=== PATIENT | female | born 1930 | race Caucasian/White ===

== ENCOUNTER 2020-03-05 10:50 | Emergency (ER) | payer MEDICARE, MEDICAID ==
[~2020-03-05 10:50] MED LIST: Iopamidol 370 76% 100 ML VIAL ONE; Sodium Chloride 0.9% 100 ML BAG ONE
[2020-03-05 12:07] LABS: Bilirubin Moderate (Negative); Blood, Urine Trace (Negative); Glucose, Urine (Dipstick) Negative (Negative); Leukocyte Negative (Negative); Nitrite Negative (Negative); Protein, Urine (Dipstick) 100 mg/dL (Neg-Trace); Urobilinogen 0.2 mg/dL (Less than 2)
[2020-03-05 12:15] LABS: Clarity Cloudy (Clear)
[2020-03-05 12:15] LABS: #Basophils 0.1 thou/uL (0.0-0.2); #Lymphocytes 1.5 thou/uL (1.20-3.40); #Monocytes 1.4 thou/uL (0.11-0.59); #Neutrophils 16.6 thou/uL (1.40-6.50); %Basophils 0.4 % (0.0-1.0); %Eosinophils 0.2 % (0.0-10.0); %Lymphocytes 7.4 % (21.0-51.0); Hemoglobin 14.5 g/dL (12.0-16.0); Mean Corpuscular HGB CONC 32.4 g/dL (32.0-36.0); Mean Corpuscular Hemoglobin 27.7 pg (27.0-31.0); Mean Corpuscular Volume 85.7 fL (78.0-98.0); Mean Platelet Volume 8.8 fL (7.4-10.4); Platelet Count 215 thou/uL (130-400); RBC Distribution Width 12.7 % (11.5-14.5); Red Blood Cell (RBC) Count 5.23 mill/uL (4.20-5.40); White Blood Cell (WBC) Count 19.5 thou/uL (4.8-10.8)
[2020-03-05 12:16] LABS: ALT (SGPT) 30 U/L (8-55); AST (SGOT) 27 U/L (5-34); Albumin 3.6 g/dL (3.4-4.8); Alkaline Phosphatase 79 U/L (40-110); Anion Gap 17 mmol/L (10-20); BUN (Urea Nitrogen) 25 mg/dL (9.8-20.1); Bilirubin, Total 0.9 mg/dL (0.2-1.2); Calc. Creatinine Clearance 0 mL/min (70-130); Calcium 8.6 mg/dL (7.8-10.44); Carbon Dioxide 21 mmol/L (23-31); Chloride 107 mmol/L (98-107); Estimated GFR-MDRD 45; Globulin 3.4 g/dL (2.4-3.5); Glucose 94 mg/dL (83-110); Lipase 14 U/L (8-78); Potassium 3.6 mmol/L (3.5-5.1); Sodium 141 mmol/L (136-145)
[2020-03-05 12:19] LABS: Bacteria/HPF 2+ HPF (None Seen); Mucous/LPF 2+ LPF (<2+); RBC/HPF 0-3 HPF (0-3); Squamous Epithelial 0-3 HPF (0-3); WBC/HPF None Seen HPF (0-3)
[2020-03-05 12:32] LABS: CKMB 2.3 ng/mL (0-6.6)
[2020-03-05] MEDS ORDERED: Piperacillin/Tazobactam 4.5 GM VIAL ONE (13:02)
--- NOTE | 2020-03-05 13:19 | CT ---
CT ABDOMEN WITH CONTRAST CT PELVIS WITH CONTRAST: DATE: 03/05/2020 HISTORY: 89-year-old female with right lower quadrant abdominal pain with nausea and vomiting COMPARISON: None TECHNIQUE: IV injection of iodinated contrast media: administered. Oral contrast media:Not administered FINDINGS: Breathing motion artifact at bilateral lung bases. Groundglass nonspecific densities at bases of bila teral lower lobes, right greater than left. Noncalcified 1.8 x 0.8 x 0.8 cm noncalcified pulmonary nodule at right middle lobe laterally abutting the right hemidiaphragm. Tiny right pleural effusion. Very distended gallbladder. Images of upper abdomen severely degraded by patient breathing motion. At the central portion of the pancreatic head, there is a smoothly well-circumscribed, approximately 2.5 x 2.5 x 3.7 cm mass with high attenuation, almost as high as the adjacent confluence between the superior mesenteric vein, main portal vein, and splenic vein, which it broadly abuts, and from wh ich it is inseparable. All of those veins are patent. No obvious large focal hepatic mass lesion. Diffuse periportal edema following the branches of the portal vein in the liver. No biliary ductal di lation. Several small bilateral renal cysts. One lateral exophytic 4.7 cm cyst at mid pole of left kidney. Appearance of hydronephrosis bilaterally may instead represent multiple parapelvic renal cyst s. No hydroureter. Decompressed urinary bladder. No splenomegaly. No pancreatic ductal dilation. No adrenal mass. Atherosclerotic callus patient without aneurysm of abdominal aorta. Multilevel high-gra de degenerative disc disease throughout lumbar spine. No compression fracture. No small bowel dilation. Increased mucosal enhancement of gastric antrum and second and third stages of duodenum. Large number of diverticula throughout sigmoid: And descending colon. No convincing evidence of acute diverticulitis. Appendix not identified. IMPRESSION: 1) appendix not identified 2) A 3.7 cm hyperdense mass expanding the margins of the pancreatic head. 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 3) 18 mm right middle lobe pulmonary nodule. 4.) Suspicious for duodenitis. 5.) Distended gallbladder. 6) lumbar spondylosis
--- NOTE | 2020-03-05 14:13 | RAD ---
CHEST 1 VIEW: INDICATION: History of weakness. COMPARISON: None. FINDINGS: There is cardiomegaly and mild pulmonary vascular congestion with interstitial prominence that may re flect underlying interstitial edema. There are small bilateral pleural effusions. No pneumothorax i s evident. IMPRESSION: Findings suspicious for mild congestive heart failure. Recommend correlation with clinical and radio graphic followup. POS: BH
[2020-03-05] MEDS ORDERED: Aspirin Chewable 81 MG TAB ONE (14:56)
[2020-03-05 15:36] LABS: Troponin I 0.056 ng/mL (< 0.028)
== END 2020-03-05 15:37 | disposition short-term general hospital (02) ==
LOC: MADERS 10:50
DX: A41.9 Sepsis, unspecified organism (principal); I48.92 Unspecified atrial flutter; R79.89 Other specified abnormal findings of blood chemistry; F41.9 Anxiety disorder, unspecified; D64.9 Anemia, unspecified; I10 Essential (primary) hypertension; E78.5 Hyperlipidemia, unspecified; Z79.899 Other long term (current) drug therapy
CPT/HCPCS: 36415; 51701; 71045; 74177; 80053; 81003; 81015; 82553; 83605; 83690; 84484; 85025; 87040; 93005; 94760; 96365; 96367; J2543; J3370; J3490; J7050; Q9967

== ENCOUNTER 2020-03-21 05:42 | Emergency (ER) | payer MEDICARE, MEDICAID ==
[2020-03-21 06:43] LABS: #Basophils 0.1 thou/uL (0.0-0.2); #Eosinphils 0.2 thou/uL (0.0-0.7); #Lymphocytes 1.8 thou/uL (1.20-3.40); #Monocytes 0.6 thou/uL (0.11-0.59); #Neutrophils 7.8 thou/uL (1.40-6.50); %Basophils 0.6 % (0.0-1.0); %Eosinophils 1.6 % (0.0-10.0); %Lymphocytes 17.6 % (21.0-51.0); %Monocytes 5.3 % (0.0-10.0); Hemoglobin 10.8 g/dL (12.0-16.0); Mean Corpuscular HGB CONC 30.9 g/dL (32.0-36.0); Mean Corpuscular Hemoglobin 26.5 pg (27.0-31.0); Mean Corpuscular Volume 85.7 fL (78.0-98.0); Mean Platelet Volume 7.2 fL (7.4-10.4); Platelet Count 257 thou/uL (130-400); RBC Distribution Width 13.2 % (11.5-14.5); Red Blood Cell (RBC) Count 4.06 mill/uL (4.20-5.40); White Blood Cell (WBC) Count 10.4 thou/uL (4.8-10.8)
[2020-03-21 06:44] LABS: INR-International Normal Ratio 1.1; PTT 28.6 sec (22.9-36.1); Prothrombin Time 14.2 sec (12.0-14.7)
[2020-03-21] MEDS ORDERED: Sodium Chloride 0.9% 1,000 ML ONE (06:50)
[2020-03-21] MEDS ORDERED: Ondansetron PF 4 MG/2 ML Vial ONE (06:51)
[2020-03-21 06:53] LABS: Bilirubin Negative (Negative); Blood, Urine Negative (Negative); Clarity Clear (Clear); Glucose, Urine (Dipstick) Negative (Negative); Leukocyte Negative (Negative); Nitrite Negative (Negative); Protein, Urine (Dipstick) Negative (Neg-Trace); Urobilinogen 0.2 mg/dL (Less than 2)
[2020-03-21 06:56] LABS: ALT (SGPT) 15 U/L (8-55); AST (SGOT) 17 U/L (5-34); Albumin 2.9 g/dL (3.4-4.8); Alkaline Phosphatase 44 U/L (40-110); Anion Gap 14 mmol/L (10-20); BUN (Urea Nitrogen) 26 mg/dL (9.8-20.1); Bilirubin, Total 0.4 mg/dL (0.2-1.2); CK (CPK) 23 U/L (29-168); Calc. Creatinine Clearance 0 mL/min (70-130); Calcium 7.8 mg/dL (7.8-10.44); Carbon Dioxide 22 mmol/L (23-31); Chloride 110 mmol/L (98-107); Estimated GFR-MDRD 77; Globulin 2.9 g/dL (2.4-3.5); Glucose 101 mg/dL (83-110); Lipase 21 U/L (8-78); Potassium 4.7 mmol/L (3.5-5.1); Protein, Total 5.8 g/dL (6.0-8.3); Sodium 141 mmol/L (136-145)
[2020-03-21] MEDS ORDERED: Pantoprazole 40 MG VIAL ONE ×2 (07:19→07:50)
--- NOTE | 2020-03-21 07:38 | RAD ---
Exam: Chest one view HISTORY:GI bleed Comparison: 03/05/2012 FINDINGS: Cardiac silhouette: Normal Aorta: Atherosclerosis Pulmonary vessels: Normal Costophrenic angles: Clear LUNGS: No masses or consolidation. Pneumothorax: None Osseous abnormalities: None IMPRESSION: No acute cardiopulmonary process. Atherosclerosis.
[2020-03-21] MEDS ORDERED: Sodium Chloride 0.9% 200 ML ONE (07:50)
== END 2020-03-21 08:20 | disposition short-term general hospital (02) ==
LOC: MADERS 05:42
DX: K92.2 Gastrointestinal hemorrhage, unspecified (principal); R11.2 Nausea with vomiting, unspecified; F03.90 Unspecified dementia, unspecified severity, without behavioral disturbance, psychotic disturbance, mood disturbance, and anxiety; F41.9 Anxiety disorder, unspecified; D64.9 Anemia, unspecified; I10 Essential (primary) hypertension; E78.5 Hyperlipidemia, unspecified; Z79.82 Long term (current) use of aspirin; Z79.899 Other long term (current) drug therapy
CPT/HCPCS: 51701; 71045; 80053; 81003; 82274; 82550; 83605; 83690; 84484; 85025; 85610; 85730; 87040; 87086; 93005; 96361; 96365; 96375; 96376; C9113; J2405; J3490; J7050

== ENCOUNTER 2020-10-26 11:16 | Emergency (ER) | payer MEDICARE, MEDICAID ==
[2020-10-26 11:46] LABS: #Eosinphils 0.1 thou/uL (0.0-0.7); #Lymphocytes 1.1 thou/uL (1.20-3.40); #Monocytes 0.3 thou/uL (0.11-0.59); #Neutrophils 4.8 thou/uL (1.40-6.50); %Basophils 0.7 % (0.0-1.0); %Eosinophils 1.6 % (0.0-10.0); %Lymphocytes 16.8 % (21.0-51.0); %Monocytes 5.4 % (0.0-10.0); %Neutrophils 75.5 % (42.0-75.0); Hemoglobin 12.7 g/dL (12.0-16.0); Mean Corpuscular HGB CONC 32.1 g/dL (32.0-36.0); Mean Corpuscular Hemoglobin 27.3 pg (27.0-31.0); Mean Platelet Volume 7.1 fL (7.4-10.4); Platelet Count 153 thou/uL (130-400); RBC Distribution Width 11.9 % (11.5-14.5); Red Blood Cell (RBC) Count 4.64 mill/uL (4.20-5.40); White Blood Cell (WBC) Count 6.4 thou/uL (4.8-10.8)
[2020-10-26 11:55] LABS: Bilirubin Negative (Negative); Blood, Urine Large (Negative); Clarity Hazy (Clear); Glucose, Urine (Dipstick) Negative (Negative); Ketone, Urine Negative (Negative); Leukocyte Negative (Negative); Nitrite Negative (Negative); Protein, Urine (Dipstick) 30 mg/dL (Neg-Trace); Specific Gravity, Urine 1.025 (1.005-1.030); Urobilinogen 0.2 mg/dL (Less than 2); pH, Urine 5.5 (5.0-9.0)
[2020-10-26 11:57] LABS: RBC/HPF Greater than 50 HPF (0-3)
[2020-10-26 11:59] LABS: WBC/HPF 0-3 HPF (0-3)
[2020-10-26 12:00] LABS: Bacteria/HPF Rare-Few HPF (None Seen); Mucous/LPF 2+ LPF (<2+); Squamous Epithelial 0-3 HPF (0-3)
[2020-10-26 12:01] LABS: ALT (SGPT) 8 U/L (8-55); AST (SGOT) 11 U/L (5-34); Albumin 3.3 g/dL (3.4-4.8); Alkaline Phosphatase 56 U/L (40-110); Anion Gap 13 mmol/L (10-20); BUN (Urea Nitrogen) 9 mg/dL (9.8-20.1); Bilirubin, Total 0.4 mg/dL (0.2-1.2); CK (CPK) 35 U/L (29-168); Calc. Creatinine Clearance 0 mL/min (70-130); Calcium 8.3 mg/dL (7.8-10.44); Carbon Dioxide 26 mmol/L (23-31); Chloride 108 mmol/L (98-107); Globulin 2.7 g/dL (2.4-3.5); Glucose 106 mg/dL (83-110); Potassium 3.8 mmol/L (3.5-5.1); Sodium 143 mmol/L (136-145)
--- NOTE | 2020-10-26 12:16 | CT ---
CT BRAIN NONCONTRAST: DATE: 10/26/2020 HISTORY: 89-year-old female status post acute head trauma from fall, and syncope FINDINGS: There is no evidence of acute intra-axial or extra-axial hemorrhage. There is no midline shift or any other mass effect. There is no extra-axial fluid collection. There is no evidence of obstructive hydrocephalus. There is an old partially healed left frontal outer table defect, probably old craniotomy and or old partially healed javon hole. Small contralateral right frontal javon hole. No acute calvarial fracture. Small focus of encephalomalacia and gliosis in the left anterior upper frontal lobe deep to the old c raniotomy changes. 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 There is diffuse brain parenchymal volume loss. There are low attenuation areas in the white matter. These are nonspecific, but in a patient of this age, they are probably chronic ischemic white matter changes due to microvascular atherosclerosis. IMPRESSION: 1) No acute intracranial findings. 2) involutional changes and chronic ischemic white matter changes. 3) old craniotomy changes and javon holes. 4) left frontal cortical and white matter, and right frontal deep white matter, old insults
--- NOTE | 2020-10-26 12:19 | CT ---
CT CERVICAL SPINE NONCONTRAST: DATE: 10/26/2020 HISTORY: cervical trauma: 89-year-old female status post fall FINDINGS: There are no jumped or perched facets. There is no evidence of acute fracture. The vertebral body hei ghts are maintained. There is no prevertebral soft tissue swelling. There are degenerative disc changes and facet osteoarthrosis. Chronic grade 1 anterolisthesis of C2 on 3, and prominently of C3 o n C4, and C4 on C5, due to severe bilateral facet DJD. IMPRESSION: 1) Cervical spondylosis. 2) no evidence of acute fracture or acute traumatic subluxation.
--- NOTE | 2020-10-26 12:37 | RAD ---
RADIOGRAPH CHEST 1 VIEW: DATE: 10/26/2020 HISTORY: 89-year-old female status post acute chest trauma from fall FINDINGS: The thoracic aorta is tortuous and ectatic. There is no evidence of airspace density, pulmonary edema , or pneumothorax. The lateral costophrenic angles are not effaced. IMPRESSION: 1) No acute pulmonary findings. 2) ectasia of thoracic aorta.
== END 2020-10-26 13:15 ==
LOC: MADERS 11:16
DX: R55 Syncope and collapse (principal); R00.1 Bradycardia, unspecified; I10 Essential (primary) hypertension; E78.5 Hyperlipidemia, unspecified; I25.2 Old myocardial infarction
CPT/HCPCS: 36415; 51701; 70450; 71045; 72125; 80053; 81003; 81015; 82550; 83605; 84484; 85025; 93005

== ENCOUNTER 2020-11-28 15:52 | Outpatient (CLI) | payer MEDICARE, MEDICAID ==
[2020-11-28 22:06] LABS: ALT (SGPT) 10 U/L (8-55); AST (SGOT) 15 U/L (5-34); Albumin 3.9 g/dL (3.4-4.8); Alkaline Phosphatase 78 U/L (40-110); Anion Gap 14 mmol/L (10-20); BUN (Urea Nitrogen) 11 mg/dL (9.8-20.1); Bilirubin, Total 0.3 mg/dL (0.2-1.2); Calc. Creatinine Clearance 0 mL/min (70-130); Calcium 8.7 mg/dL (7.8-10.44); Carbon Dioxide 25 mmol/L (23-31); Chloride 107 mmol/L (98-107); Glucose 102 mg/dL (83-110); Potassium 4.1 mmol/L (3.5-5.1); Protein, Total 6.9 g/dL (5.8-8.1); Sodium 142 mmol/L (136-145)
[2020-11-29 14:19] LABS: Hemoglobin 14.2 g/dL (12.0-16.0); Mean Corpuscular Volume 84.9 fL (78.0-98.0); Red Blood Cell (RBC) Count 5.22 mill/uL (4.20-5.40); White Blood Cell (WBC) Count 6.7 thou/uL (4.8-10.8)
[2020-11-29 14:20] LABS: #Lymphocytes 1.6 thou/uL (1.20-3.40); #Neutrophils 4.4 thou/uL (1.40-6.50); %Eosinophils 2.3 % (0.0-10.0); %Lymphocytes 24.5 % (21.0-51.0); %Neutrophils 66.1 % (42.0-75.0); Mean Corpuscular Hemoglobin 27.1 pg (27.0-31.0); Mean Platelet Volume 8.3 fL (7.4-10.4); Platelet Count 207 thou/uL (130-400); RBC Distribution Width 11.6 % (11.5-14.5)
[2020-11-29 14:22] LABS: %Monocytes 6.3 % (0.0-10.0)
[2020-11-29 14:23] LABS: #Basophils 0.1 thou/uL (0.0-0.2); #Eosinphils 0.2 thou/uL (0.0-0.7); #Monocytes 0.4 thou/uL (0.11-0.59); %Basophils 0.8 % (0.0-1.0)
== END 2020-11-28 15:53 | disposition home or self-care (01) ==
LOC: MADLABSP 15:52
PROVIDERS: ATTEND Family Medicine
DX: D64.9 Anemia, unspecified (principal)
CPT/HCPCS: 80053; 80164; 82728; 85025